=== PATIENT | female | born 1975 | race Caucasian/White ===

== ENCOUNTER 2019-04-27 11:35 | Emergency (ER) | payer OTHER ==
[2019-04-27 11:40] VITALS: BMI 30.2
--- NOTE | 2019-04-27 12:48 | PDOC ---
History of Present Illness - General Chief Complaint: Vaginal Bleeding Stated Complaint: VAG BLEED Time Seen by Provider: 04/27/19 12:47 History Source: Patient Exam Limitations: No Limitations - History of Present Illness Initial Comments: 04/27/19 14:34 44yF w PMHx DM, hypothyroidism, obesity presenting w 1 week vaginal bleeding and intermittent suprapubic pain. Increased vaginal bleeding w blood clots compared to typical menstrual cycles. Went to urgent care today, had + result, referred here for further eval. Irregular menstrual cycles since January 2019, did not take any meds. Took Advil yesterday without relief. Denies fever, nausea/vomiting, chest pain/SOB. Past History - Past Medical History Allergies/Adverse Reactions: Allergies Allergy/AdvReac Type Severity Reaction Status Date / Time No Known Drug Allergies Allergy Verified 04/27/19 11:37 Home Medications: Ambulatory Orders NK [No Known Home Medication] 04/27/19 Anemia: No Asthma: No Cancer: No Cardiac Disorders: No CVA: No COPD: No CHF: No Dementia: No Diabetes: Yes (?) GI Disorders: No Disorders: No HTN: No Hypercholesterolemia: No Liver Disease: No Seizures: No Thyroid Disease: Yes (not on meds) - Reproductive History Is Patient Now?: Yes (#): 5 Para: 4 - Psycho Social/Smoking Cessation Hx Smoking History: Never smoked Have you smoked in the past 12 months: No Hx Alcohol Use: No Drug/Substance Use Hx: No Hx Substance Use Treatment: No Review of Systems - Review of Systems Constitutional: No: Chills, Fever HEENTM: No: Eye Pain, Nose Pain Respiratory: No: Cough, Shortness of Breath Cardiac (ROS): No: Chest Pain, Palpitations ABD/GI: No: Abdominal Distended, Constipated, Diarrhea, Nausea, Vomiting : No: Burning, Dysuria Musculoskeletal: No: Back Pain, Joint Pain Integumentary: No: Bruising, Flushing, Lesions Neurological: No: Headache, Seizure Psychiatric: No: Anxiety, Depression Endocrine: No: Excessive Sweating, Intolerance to Cold, Intolerance to Heat Hematologic/Lymphatic: Yes: Blood Clots. No: Anemia *Physical Exam - Vital Signs Last Vital Signs Temp Pulse Resp BP Pulse Ox 97.9 F 74 16 132/75 100 04/27/19 11:37 04/27/19 11:37 04/27/19 11:37 04/27/19 11:37 04/27/19 11:37 - Physical Exam General Appearance: Yes: Nourished, Appropriately Dressed. No: Apparent Distress HEENT: positive: EOMI, GUTIERREZ, Normal Voice, Hearing Grossly Normal Respiratory/Chest: positive: Lungs Clear, Normal Breath Sounds. negative: Chest Tender, Respiratory Distress Cardiovascular: positive: Regular Rhythm, Regular Rate, S1, S2. negative: Edema , Murmur Female Pelvic Exam: positive: normal external exam, cervical os closed, normal adnexa, vaginal bleeding (gross). negative: CMT Gastrointestinal/Abdominal: positive: Normal Bowel Sounds, Tender (mild suprapubic discomfort), Flat, Soft. negative: Organomegaly Musculoskeletal: negative: CVA Tenderness (R), CVA Tenderness (L) Extremity: positive: Normal Capillary Refill Integumentary: positive: Normal Color Neurologic: positive: roll mechanic II-XII NML intact, Fully Oriented, Alert, Normal Response, Responsive ED Treatment Course - LABORATORY CBC & Chemistry Diagram: 04/27/19 13:20 04/27/19 13:20 Medical Decision Making - Medical Decision Making 04/27/19 13:54 Pelvic exam - closed cervical os, gross blood in vaginal vault, no cervical/ ovarian tenderness B-HCG 1154 TVUS showed no gestational sac, nonspecific heterogeneous and hypervascular endometrium and endocervical canal, likely R ovarian corpus luteal cyst, no torsion --- 44yF w PMHx DM, hypothyroidism, obesity presenting w 1 week vaginal bleeding and intermittent suprapubic pain d/t viable early IUP vs ectopic vs threatened . Not anemic. Too early to visualize w HCG 1154. Hemodynamically stable. DC w OBGYN f/u, 2d f/u repeat HCG, ultrasound Discharge - Discharge Information Problems reviewed: Yes Clinical Impression/Diagnosis: Vaginal bleeding Condition: Stable Disposition: HOME - Follow up/Referral Referrals: Rabia Mccarthy MD [Primary Care Provider] - Betty Neal MD [Staff Physician] - - Patient Discharge Instructions Patient Printed Discharge Instructions: DI for Vaginal Bleeding During Additional Instructions: Follow up with your obstetric doctor. Come back to the hospital in 2 days to repeat a B-HCG and ultrasound --- Donald un seguimiento con nunez mdico obsttrico. Regrese al hospital en 2 [place] para repetir gaby B-HCG y gaby ecografa. Print Language: CITIZEN OF [place] - Post Discharge Activity
[2019-04-27 13:52] LABS: BASO % 0.3 % (0-2.0); EOS % 0.8 % (0-4.5); HEMATOCRIT 38.6 % (32.4-45.2); HEMOGLOBIN 12.7 GM/dL (10.7-15.3); LYMPH % 28.7 % (8-40); MCH 29.3 pg (25.7-33.7); MEAN CELL VOLUME 88.6 fl (80-96); MEAN PLT VOLUME 8.5 fl (7.5-11.1); MONO % 11.4 % (3.8-10.2); NEUT % 58.8 % (42.8-82.8); PLATELET COUNT 305 K/MM3 (134-434); RBC 4.35 M/mm3 (3.60-5.2); RDW 13.9 % (11.6-15.6)
[2019-04-27 14:09] LABS: INR 0.93 (0.83-1.09)
[2019-04-27 14:21] LABS: BLOOD UREA NITROGEN 8.9 mg/dL (7-18); CALCIUM 9.2 mg/dL (8.5-10.1); CREATININE 0.7 mg/dL (0.55-1.3)
--- NOTE | 2019-04-27 14:25 | PDOC ---
Documentation entered by Jayla Abreu SCRIBE, acting as scribe for Dao Santiago MD. aDo Santiago MD: This documentation has been prepared by the Lois dowell Brenda, SCRIBE, under my direction and personally reviewed by me in its entirety. I confirm that the documentation accurately reflects all work, treatment, procedures, and medical decision making performed by me. Attending Attestation - Resident Resident Name: Vikas Jackson - ED Attending Attestation I have performed the following: I have examined & evaluated the patient, The case was reviewed & discussed with the resident, I agree w/resident's findings & plan, Exceptions are as noted - HPI HPI: 04/27/19 14:38 The patient is a 44 year old femlae with a significant PMH of hypothyroidism, DM and obesity who presents to the ED with 1 week of vaginal bleeding along with clots and intermittent suprapubic pain. Patient notes irregular mesntrual cycles ever since January 2019. Denies any medical intervention. The patient denies chest pain, shortness of breath, headache and dizziness. Denies fever, chills, nausea, vomiting, diarrhea and constipation. Denies dysuria, frequency, urgency. Allergies: NKA Social history: No reported hx of tobacco use, alcohol use or illicit drug use. PCP: Jelly - Physicial Exam PE: 04/27/19 14:25 Vitals: Triage vital signs reviewed General Appearance: No acute distress, well nourished, well developed Head: Atraumatic Eyes: Pupils equal reactive round, extraocular movement intact Neck: Supple; No nuchal rigidity Chest Wall: Nontender Abdomen: Soft, nondistended, normal bowel sounds, nontender to palpation Rectal: Exam deferred Pelvic: Please refer to Dr. Vikas Young note Extremities: Full range of motion to all extremities, no cyanosis, clubbing, or edema Skin: Warm and dry, no rashes or lesions, no rash, no petechiae Psych: Normal mood, normal affect - Medical Decision Making 04/27/19 17:50 Early beta very low no evidence of IUP on ultrasound Cannot rule out very early ectopic Patient well-appearing with no abdominal pain will return to ED in 2 days for repeat beta repeat ultrasound
[2019-04-27 16:04] VITALS: BP 106/67; PULSE 79; TEMP 97.8
== END 2019-04-27 16:52 | disposition home or self-care (01) ==
LOC: JER 11:35
DX: O26.891 Other specified pregnancy related conditions, first trimester (principal); O20.8 Other hemorrhage in early pregnancy; Z3A.01 Less than 8 weeks gestation of pregnancy; O24.111 Pre-existing type 2 diabetes mellitus, in pregnancy, first trimester; E11.9 Type 2 diabetes mellitus without complications; O99.281 Endocrine, nutritional and metabolic diseases complicating pregnancy, first trimester; E03.9 Hypothyroidism, unspecified
CPT/HCPCS: 36415; 76801-TC; 76817-TC; 80048; 84702; 85025; 85610; 86850; 86900; 86901; 99283-25